=== PATIENT | female | born 1955 | race Caucasian/White ===

== ENCOUNTER 2018-05-05 20:13 | Emergency (ER) | payer MEDICAID ==
[~2018-05-05] VITALS: Wt 67.8 kg
[2018-05-05] MEDS ORDERED: LIDOCAINE/MYLANTA 40 ML BTL PO STA (21:32)
[2018-05-05] MEDS ORDERED: FAMOTIDINE 20 MG TAB PO STA (21:32)
[2018-05-05] MEDS ORDERED: DEXL30CA2 PO (22:01)
[2018-05-06] MEDS ORDERED: METF-849 PO (00:26)
--- NOTE | 2018-05-06 00:34 | ERD ---
ER Documentation Chief Complaint Chief Complaint bib self, cc: right rib pain x 1 week, no trauma HPI 63-year-old female presents for right right-sided rib cage pain. Pain has been ongoing for about the last week. It is intermittent, is associated with movement, there is no exertional quality, she has no nausea or vomiting, she s tates he has a history of gastritis, and this feels similar. There are no alleviating factors, she denies chest pain or shortness of breath ROS All systems reviewed and are negative except as per history of present illness. Medications Home Meds Active Scripts Metformin* (Glucophage*) 500 Mg Tab, 500 MG PO BID, #60 TAB Prov:ANN-MARIE BROWN MD 05/06/18 Reported Medications Dexlansoprazole (Dexilant) 30 Mg Cap., 30 MG PO DAILY, #30 CAP 05/05/18 Allergies Allergies: Coded Allergies: sulfamethoxazole (Verified Allergy, Unknown, rash, 05/05/18) trimethoprim (Verified Allergy, Unknown, rash, 05/05/18) PMhx/Soc History of Surgery: Yes (c-sectionx 4) Anesthesia Reaction: No Hx Neurological Disorder: No Hx Respiratory Disorders: No Hx Cardiac Disorders: No Hx Psychiatric Problems: No Hx Miscellaneous Medical Probl: No Hx Alcohol Use: No Hx Substance Use: No Hx Tobacco Use: No Smoking Status: Never smoker Physical Exam Vitals Vital Signs Date Temp Pulse Resp B/P (MAP) Pulse Ox O2 O2 Flow FiO2 Time Delivery Rate 05/06/18 63 16 105/74 96 Room Air 00:30 (84) 05/06/18 63 16 118/70 96 Room Air 00:00 (86) 05/05/18 98.3 79 19 125/68 100 20:17 (87) Physical Exam Const: No acute distress Head: Atraumatic Eyes: Normal Conjunctiva ENT: Normal External Ears, Nose and Mouth. Neck: Full range of motion. No meningismus. Resp: Clear to auscultation bilaterally Cardio: Regular rate and rhythm, no murmurs Abd: Soft, non tender, non distended, negative Leon sign. Normal bowel sounds Skin: No petechiae or rashes Back: No midline or flank tenderness Ext: No cyanosis, or edema Neur: Awake and alert Psych: Normal Mood and Affect Result Diagram: 05/05/18215305/05/182153 Results 24 hrs Laboratory Tests Test 05/05/18 21:54 White Blood Count 5.7 10^3/ul Red Blood Count 5.15 10^6/ul Hemoglobin 14.4 g/dl Hematocrit 42.2 % Mean Corpuscular Volume 81.9 fl Mean Corpuscular Hemoglobin 28.0 pg Mean Corpuscular Hemoglobin Concent 34.1 g/dl Red Cell Distribution Width 12.1 % Platelet Count 178 10^3/UL Mean Platelet Volume 11.1 fl Immature Granulocytes % 0.200 % Neutrophils % 53.0 % Lymphocytes % 37.9 % Monocytes % 7.3 % Eosinophils % 1.4 % Basophils % 0.2 % Nucleated Red Blood Cells % 0.0 /100WBC Immature Granulocytes # 0.010 10^3/ul Neutrophils # 3.0 10^3/ul Lymphocytes # 2.1 10^3/ul Monocytes # 0.4 10^3/ul Eosinophils # 0.1 10^3/ul Basophils # 0.0 10^3/ul Nucleated Red Blood Cells # 0.0 10^3/ul Urine Color YELLOW Urine Clarity CLEAR Urine pH 5.0 Urine Specific [place] 1.031 Urine Ketones TRACE mg/dL Urine Nitrite NEGATIVE mg/dL Urine Bilirubin NEGATIVE mg/dL Urine Urobilinogen 1+ mg/dL Urine Leukocyte Esterase NEGATIVE Lu[place]/ul Urine Hemoglobin NEGATIVE mg/dL Urine Glucose 3+ mg/dL Urine Total Protein NEGATIVE mg/dl Sodium Level 138 mmol/L Potassium Level 3.6 mmol/L Chloride Level 95 mmol/L Carbon Dioxide Level 32 mmol/L Anion Gap 11 Blood Urea Nitrogen 14 mg/dl Creatinine 0.38 mg/dl Est Glomerular Filtrat Rate mL/min > 60 mL/min Glucose Level 301 mg/dl Calcium Level 9.3 mg/dl Total Bilirubin 0.5 mg/dl Direct Bilirubin 0.00 mg/dl Indirect Bilirubin 0.5 mg/dl Aspartate Amino Transf (AST/SGOT) 25 IU/L Alanine Aminotransferase (ALT/SGPT) 23 IU/L Alkaline Phosphatase 139 IU/L Troponin I < 0.012 ng/ml Total Protein 7.4 g/dl Albumin 4.4 g/dl Globulin 3.00 g/dl Albumin/Globulin Ratio 1.46 Lipase 72 U/L Current Medications Medications Dose Sig/Abel Start Time Status Last (Trade) Ordered Route PRN Stop Time Admin Dose Reason Admin Famotidine 20 mg ONCE STAT 05/05/18 DC 05/05/18 (Pepcid) PO 21:32 22:11 05/05/18 21:33 40 ml ONCE STAT 05/05/18 DC 05/05/18 Miscellaneous PO 21:32 22:11 Medication 05/05/18 (Gi Cocktail 21:33 (2)) Procedures/MDM 63-year-old female presents for evaluation of right rib cage pain. Patient has no peritoneal signs on abdominal exam, her ultrasound was negative for signs of gallstones, labs are overall unremarkable, given her age, a cardiac workup was initiated, this was negative. Chest x-ray shows no acute findings, at this point the patient is stable for discharge home, at discharge she was in no acute distress. EKG: Rate/Rhythm: Normal Sinus Rhythm QRS, ST, T-waves: No changes consistent w/ acute ischemia Impression: No evidence of ischemia or arrhythmia Chest X-ray 1V Interpreted by me: Soft Tissue: No acute abnormalities Bones: No acute abnormalities Mediastinum/Cardiac Silhouette/Lungs: No acute abnormalities Departure Diagnosis: Primary Impression: Abdominal pain Abdominal location: right upper quadrant Qualified Codes: R10.11 - Right upper quadrant pain Condition: Stable Patient Instructions: Abdominal Pain Additional Instructions: Call your primary care doctor TOMORROW for an appointment during the next 2-3 days.See the doctor sooner or return here if your condition worsens before your appointment time. ANN-MARIE BROWN MD May 06, 2018 00:34
[2018-05-06 00:45] VITALS: BP 108/69; PULSE 73; RESP 16
== END 2018-05-06 00:45 | disposition home or self-care (01) ==
LOC: FTE 20:13 → E/R 05-06 00:45
DX: R10.11 Right upper quadrant pain (principal); Z79.84 Long term (current) use of oral hypoglycemic drugs
CPT/HCPCS: 71045; 76705; 80053; 81003; 83690; 84484; 85025; Z7610